=== PATIENT | male | born 1960 | race African-American/Black ===

== ENCOUNTER 2018-03-12 04:53 | Emergency (ER) | payer MEDICAID ==
[~2018-03-12] VITALS: Ht 170.2 cm; Wt 91.0 kg
[2018-03-12] MEDS ORDERED: IBUPROFEN 600MG TABLET PO ONE ×2 (06:30→08:15)
[2018-03-12] MEDS ORDERED: FLUORESCEIN SODIUM 1MG/STRIP LEFTEYE ONE (06:30)
[2018-03-12] MEDS ORDERED: LIDOCAINE HCL 1% 20ML VIAL (Pyxis) INJ MC ONE (06:30)
[2018-03-12] MEDS ORDERED: TETRACAINE 0.5% OPHTH DROPS 4ML LEFTEYE ONE (06:30)
[2018-03-12] MEDS ORDERED: LIDOCAINE HCL/PF 1% 10 MG/ML 5ML VIAL IJ SCH (06:45)
[2018-03-12 08:47] VITALS: BP 125/83
== END 2018-03-12 09:01 | disposition home or self-care (01) ==
LOC: ER 04:53
DX: S05.12XA Contusion of eyeball and orbital tissues, left eye, initial encounter (principal); S01.112A Laceration without foreign body of left eyelid and periocular area, initial encounter; H11.32 Conjunctival hemorrhage, left eye; V48.4XXA Person boarding or alighting a car injured in noncollision transport accident, initial encounter; Y93.89 Activity, other specified; Y92.89 Other specified places as the place of occurrence of the external cause; F17.210 Nicotine dependence, cigarettes, uncomplicated
CPT/HCPCS: 12011; 70486; 99284; J3490; Z7610

== ENCOUNTER 2018-03-25 09:13 | Emergency (ER) | payer MEDICAID ==
[~2018-03-25] VITALS: Ht 170.2 cm; Wt 93.0 kg
[2018-03-25] MEDS ORDERED: IBUPROFEN 800MG TABLET PO ONE (12:30)
[2018-03-25 15:32] VITALS: BP 121/61
== END 2018-03-25 15:42 | disposition home or self-care (01) ==
LOC: ER 09:13
DX: Z48.02 Encounter for removal of sutures (principal); M46.86 Other specified inflammatory spondylopathies, lumbar region; F17.200 Nicotine dependence, unspecified, uncomplicated; Z87.828 Personal history of other (healed) physical injury and trauma
CPT/HCPCS: 72110; 99284; Z7610